=== PATIENT | male | born 1990 | race Caucasian/White ===

== ENCOUNTER → 2025-10-02 | Outpatient (CLI) | payer OTHER | LOC: M PLAIMG 07:59 | PROVIDERS: ATTEND Physician Assistant | DX: S43.492A Other sprain of left shoulder joint, initial encounter (principal); M67.814 Other specified disorders of tendon, left shoulder; M25.512 Pain in left shoulder; Y93.9 Activity, unspecified; Y92.9 Unspecified place or not applicable ==